=== PATIENT | male | born 1995 | race Caucasian/White ===

== ENCOUNTER 2020-10-16 10:49 | Emergency (ER) | payer BC, SELFPAY ==
--- NOTE | ~2020-10-16 | XR_ITS ---
EXAMINATION: XR HAND, RIGHT CLINICAL INFORMATION: Injury COMPARISON: None TECHNIQUE: PA, lateral, and oblique views of the right hand. FINDINGS: Dislocation of the fifth PIP joint with dorsal displacement of the middle phalanx. There is no associated fracture. There is however associated soft tissue edema. Radiograph of the right hand are otherwise unremarkable. XR/XR hand RT min 3V IMPRESSION: Fifth PIP dislocation.
--- NOTE | ~2020-10-16 | XR_ITS ---
EXAMINATION: XR FINGER, RIGHT CLINICAL INFORMATION: Status post reduction COMPARISON: Radiographs of the right hand earlier today TECHNIQUE: 3 views of the right small finger. XR/XR finger RT min 2V FINDINGS/IMPRESSION: Successful reduction of fifth PIP joint. Again, no osseous injury is appreciated on these radiographs. Soft tissue swelling however persists.
[2020-10-16 10:58] VITALS: BP 136/68; PULSE 107; RESP 18; TEMP 37.1; O2SAT 99; BMI 24.4
[2020-10-16] MEDS: Ibuprofen 800 MG TABLET PO (11:54)
[2020-10-16] MEDS: oxyCODONE HCl Immed Release 5 MG TABLET PO (11:55)
--- NOTE | 2020-10-16 11:58 | ED_ITS ---
HPI - Extremity Injury (Upper) General Chief Complaint: Extremity Injury, Upper Stated Complaint: Broken finger Time Seen by Provider: 10/16/20 11:43 Source: patient and family (Significant other) Mode of arrival: ambulatory Limitations: no limitations History of Present Illness complaint: injury to: right and finger (Right pinky) Onset (ago): minute(s) (Prior to arrival) Other injuries: none Place: outdoors (While playing flag football) Severity: severe Severity scale (1-10): 10 Relieving factors: none Exacerbating factors: movement of extremity Context: sports-related injury Associated symptoms: denies other symptoms Treatments prior to arrival: cold therapy Related Data Previous Rx's Medication Instructions Recorded acetaminophen [Tylenol Extra 1,000 mg PO QID PRN #14 tab 10/16/20 Strength] ibuprofen 800 mg PO Q8H PRN #14 tab 10/16/20 oxycodone 5 mg PO BID PRN #10 tab 10/16/20 Allergies Allergy/AdvReac Type Severity Reaction Status Date / Time No Known Allergies Allergy Unverified 01/29/20 19:43 [No Known Allergies*] Review of Systems Review of Systems: Constitutional : No changes in activity, No lethargy, No recent prior head injury, No agitation, No increased fussiness ENT/Mouth : No Ear Pain, No Nasal discharge/drainage Eyes: No Eye Pain, No Swelling, No Redness, No Foreign Body, No Vision Changes Cardiovascular : No Chest Pain, No SOB Respiratory : No Cough Gastrointestinal : No Nausea, No Vomiting, No abdominal Pain Genitourinary : No Dysuria, No Urinary Frequency, No Urinary Incontinence, No Urgency, No Flank Pain Musculoskeletal : + joint pain, No neck stiffness, No back pain/injury Skin : No lacerations Neuro : No unsteady gait, No Paresthesias, No Loss of Consciousness, No altered mental status, No Headache Yes all other systems are reviewed and are negative [facility] Past Medical History Attestation statement: The following information was validated with the patient. Medical History No known health problems Social History Social History Advance Directives: No Advance Directives Information Provided: No Physical Exam Vital Signs: Vital Signs: Last Vital Signs Temp 98.7 F 10/16/20 10:58 Pulse 107 H 10/16/20 10:58 Resp 18 10/16/20 10:58 BP 136/68 10/16/20 10:58 Pulse Ox 99 10/16/20 10:58 Body Mass Index 24.4 vital signs have been reviewed as normal and appeared to be correct. Blood pressure normal. Heart rate tachycardic at 107. Respiration rate normal. Temperature normal. Oxygen saturation normal. Appearance: Alert. Oriented X3. No acute distress. Head: Normal external exam. Normocephalic. Atraumatic. Eyes: PERRLA. EOMI. Conjunctiva and sclera normal. Eyelids normal. ENT: Pharynx normal. Uvula midline. Moist mucous membranes. Neck: Normal inspection. Neck supple. FROM. No adenopathy. Thyroid Normal. No meningeal signs. No neck mass noted. CVS: Normal heart rate and rhythm. Heart sound normal. Pulses normal throughout. No murmurs/rales/gallops. Respiratory: No respiratory distress. Painless inspiration. Breath sounds normal. No wheezes/rales/rhonchi noted. Chest nontender. No accessory muscle usage noted or decreased air movement noted. Back: Full range of motion noted. Skin: Skin warm and dry. Normal skin color. Normal skin turgor. No rashes/lesions/lacerations noted. Extremities: Patient with tenderness to palpation to distal aspect of right l ittle finger/pinky with obvious deformity consistent with dislocation. No laxity is noted. No signs of infection. All other Extremities exhibit normal range of motion and nontender. Neuro: Oriented X 3. No motor deficit. No sensory deficit. Reflexes normal. Normal steady gait. No focal neuro deficits noted. Vascular: + radial pulses/+ 2 distal pedal pulses/+2 dorsalis pedis b/l. Normal cap refill. No cyanosis noted to upper extremity nails and lower extremity toes nails. Course Course Course Narrative: 24-year-old male presenting with right pinky pain with obvious deformity while playing football. Denied any other injuries. On exam patient has an obvious deformity. X-ray revealed dislocation therefore patient now status post reduction. If status post reduction x-ray has improved will place the patient on a finger splint treat symptomatic and referred to orthopedic hand surgeon and to follow up with primary care provider as well. Patient understands agrees with this plan. Procedures Orthopedic Fracture Reduction Fracture #1: Time Out Performed: Yes Side: right Fracture Reduction Location: finger (Right pinky) Technique: direct manipulation Post Reduction X-rays Demonstrate: acceptable reduction Post-reduction neuro exam: intact Post-reduction vascular exam: intact Splint Applied: Yes Patient Tolerated Procedure: well and no complications MDM - Extremity Injury (Upper) Medical Records Attestation: I reviewed the patient's medical records. Imaging Data Right hand x-ray: Attestation: I personally reviewed and interpreted this imaging study as follows: Radiologist's impression: FINDINGS: Dislocation of the fifth PIP joint with dorsal displacement of the middle phalanx. There is no associated fracture. There is however associated soft tissue edema. Radiograph of the right hand are otherwise unremarkable. XR/XR hand RT min 3V IMPRESSION: Fifth PIP dislocation. Status post reduction x-ray of right finger pinky: Attestation: I personally reviewed and interpreted this imaging study as follows: Radiologist's impression: FINDINGS: Dislocation of the fifth PIP joint with dorsal displacement of the middle phalanx. There is no associated fracture. There is however associated soft tissue edema. Radiograph of the right hand are otherwise unremarkable. XR/XR hand RT min 3V IMPRESSION: Fifth PIP dislocation. Discharge Plan Discharge Clinical Impression: Dislocation of finger, Sports injuries Patient Disposition: Home, Self-Care Instructions: Closed Reduction (ED), Finger Dislocation (ED) Prescriptions: New ibuprofen 800 mg tablet 800 mg PO Q8H PRN (Reason: pain) Qty: 14 RF: 0 acetaminophen [Tylenol Extra Strength] 500 mg tablet 1,000 mg PO QID PRN (Reason: fever or pain) Qty: 14 RF: 0 oxycodone 5 mg tablet 5 mg PO BID PRN (Reason: pain) Qty: 10 RF: 0 Referrals: Frances Jimenez MD [Physician] - 2 days Print Language: Citizen Of [place]
--- NOTE | 2020-10-16 12:36 | PC.NURSE ---
R 4th and 5th fingers britney taped and splint applied
== END 2020-10-16 13:05 | disposition home or self-care (01) ==
PROVIDERS: Emergency Provider Emergency Medicine Emergency Medical Services
DX: S63.256A Unspecified dislocation of right little finger, initial encounter (principal); M79.641 Pain in right hand; W01.0XXA Fall on same level from slipping, tripping and stumbling without subsequent striking against object, initial encounter; Y93.61 Activity, american tackle football; Y92.321 Football field as the place of occurrence of the external cause; Y99.9 Unspecified external cause status
CPT/HCPCS: 26705; 29130; 73130; 73140; 99283